=== PATIENT | female | born 1980 | race Caucasian/White ===

== ENCOUNTER 2018-02-23 13:45 | Outpatient (RCR) | payer OTHER, SELFPAY ==
--- NOTE | 2018-02-11 16:06 | PT.OTN ---
Current Diagnoses Other specified disorders of muscle (02/11/18) Transition note: On February 09, 2018 our therapy services consisting of Speech, Occupational, and Physical Therapy transitioned from the [employer] electronic documentation system to a new [employer] electronic documentation system.?? All documentation prior to February 09 can be found under [employer] saved data. From February 09 forward all medical record documentation will be in [employer] 6.1.
--- NOTE | 2018-02-11 17:35 | PT.OTN ---
Current Diagnoses Other specified disorders of muscle (02/11/18) Physical Therapy Treatment Note PT-OP-A Visit Information Start: 02/11/18 17:17 Freq: Status: Active Protocol: Activity Type Activity Date Activity User E-Sign Co-Sign Detail Recorded Client Recorded Date Recorded By Document 02/11/18 04:18 [facility] [email or web address] 02/11/18 17:34 [facility] 02/11/18 04:18 Out-Patient Physical Therapy Visit Information [Visit Information] -Visit Type Treatment Note -Visit Start Time 04:00 -Visit Stop Time 04:50 -Total Visit Minutes 50 -Visit Number 8 -Number of ELECTRICAL DESIGN TECHNICIAN Visits 0 PT-OP-C Subjective Start: 02/11/18 17:17 Freq: Status: Active Protocol: Activity Type Activity Date Activity User E-Sign Co-Sign Detail Recorded Client Recorded Date Recorded By Document 02/11/18 04:18 [facility] [email or web address] 02/11/18 17:34 [facility] 02/11/18 04:18 OP-PT Subjective [Patient Comments] -Patient Comments Christi notes she like the electrical stimulation last visit. She notes she is getting mirganes daily now and is in constant pain. She is unable to lay on her stomach and her low back continues to be painful. SHe is awaiting record review before being scheduled for surgery. -Patient Reported Progress Same PT-OP-Q Treatments Start: 02/11/18 17:17 Freq: Status: Active Protocol: Activity Type Activity Date Activity User E-Sign Co-Sign Detail Recorded Client Recorded Date Recorded By Document 02/11/18 04:18 [facility] [email or web address] 02/11/18 17:34 [facility] 02/11/18 04:18 Cardio Equipment [Bicycle (Upright)] -Duration (Minutes) 8 -Resistance 4 Therapeutic Exercises [Supine Exercises] 4 -Supine Exercise Name hamstring stretch -Side bilateral -Reps/Minutes 2 min 3 -Supine Exercise Name hip flexor stretch -Side bilateral -Reps/Minutes 2 minutes each -Comments in sharmaine test position with non stretched leg over the ball 2 -Supine Exercise Name ball rolls with 65 cm ball, side bends with knees over the ball -Side bilateral -Reps/Minutes 20 reps rolls and 10 reps sidebends -Comments for increased lumbar flexion 1 -Supine Exercise Name bilateral adductor squeeze -Reps/Minutes 10 [Other Exercises] 2 -Other Exercise Name quadraped pelvic tilts 1 -Other Exercise Name quadraped TA engagement with opposite arm lift -Side bilateral -Reps/Minutes 20 Manual Therapy Treatment [Joint Mobilizations] 1 -Joint thoracic spine mobilizations into extension -Grade III -Body Position Prone -Reps/Duration 12 minutes PT-OP-R Modalities Start: 02/11/18 17:17 Freq: Status: Active Protocol: Activity Type Activity Date Activity User E-Sign Co-Sign Detail Recorded Client Recorded Date Recorded By Document 02/11/18 04:18 [facility] [email or web address] 02/11/18 17:34 [facility] 02/11/18 04:18 Other Unlisted Modality [Treatment] Back -Name of Modality HOME TENS SET UP -Duration (Minutes) 5 -Body Position Sitting -Comments Christi was set up with a home TENS unit as her referral came through from her physician. She responded well to the electrical stimulation last visit for pain control. She understood set up of the TENS unit well. PT-OP-T Assessment and Plan Start: 02/11/18 17:17 Freq: Status: Active Protocol: Activity Type Activity Date Activity User E-Sign Co-Sign Detail Recorded Client Recorded Date Recorded By Document 02/11/18 04:18 [facility] [email or web address] 02/11/18 17:34 [facility] 02/11/18 04:18 Physical Therapy Plan [Frequency and Duration] -Frequency of Treatment 1x/Week [Therapeutic Interventions] -Therapeutic Interventions Home Exercise Program Manual Therapy Neuromuscular Re-education Self-Care/Home Management Soft Tissue Mobilization Therapeutic Exercises -Modalities Electric Stimulation [Next Visit Focus/Plan] -Next Visit Plan continue working on stretching and stabilization for Christi while she is awaiting surgical consult
--- NOTE | 2018-02-23 17:32 | PT.OTN ---
Current Diagnoses Other specified disorders of muscle (02/23/18) Physical Therapy Treatment Note PT-OP-A Visit Information Start: 02/11/18 17:17 Freq: Status: Active Protocol: Document 02/23/18 17:25 [facility] (Rec: 02/23/18 17:32 [facility] [email or web address]) Out-Patient Physical Therapy Visit Information Visit Information Visit Type Treatment Note Visit Start Time 13:45 Visit Stop Time 14:30 Total Visit Minutes 45 Visit Number 9 Number of MANAGER ENVIRONMENTAL HEALTH Visits 0 PT-OP-C Subjective Start: 02/11/18 17:17 Freq: Status: Active Protocol: Document 02/23/18 17:25 [facility] (Rec: 02/23/18 17:32 [facility] [email or web address]) OP-PT Subjective Patient Comments Patient Comments Christi reports she is waiting to hear back on a specialist at to perform her abdominal surgery. She did experience some bleeding following the abdomianl exercises she did in PT last treatment PT-OP-Q Treatments Start: 02/11/18 17:17 Freq: Status: Active Protocol: Document 02/23/18 17:25 [facility] (Rec: 02/23/18 17:32 [facility] [email or web address]) Cardio Equipment Elliptical Duration (Minutes) 8 Resistance 0 Gym Equipment Shuttle Rebound 1 Exercise Details bilateral leg press Reps/Duration 3 sets of 10 Comments both bilateral and single leg press Therapeutic Exercises Supine Exercises 5 Supine Exercise Name TA with marches Reps/Minutes 10 reps each 4 Supine Exercise Name hamstring stretch Side bilateral Reps/Minutes 2 min 3 Supine Exercise Name hip flexor stretch Side bilateral Reps/Minutes 2 min eacg Comments in sharmaine test position with non stretched leg over the ball 2 Supine Exercise Name ball rolls with 65 cm ball, side bends with knees over the ball Reps/Minutes 20 reps rolls and 10 reps sidebends Comments for increased lumbar flexion 1 Supine Exercise Name bilateral adductor squeeze Reps/Minutes 10 Other Exercises 2 Other Exercise Name quadraped pelvic tilts Reps/Minutes 10 1 Other Exercise Name quadraped TA engagement with opposite arm lift and opp leg lifts Side bilateral Reps/Minutes 20 PT-OP-R Modalities Start: 02/11/18 17:17 Freq: Status: Active Protocol: Document 02/11/18 04:18 [facility] (Rec: 02/11/18 17:34 [facility] [email or web address]) Other Unlisted Modality Treatment Back Name of Modality HOME TENS SET UP Duration (Minutes) 5 Body Position Sitting Comments Christi was set up with a home TENS unit as her referral came through from her physician. She responded well to the electrical stimulation last visit for pain control. She understood set up of the TENS unit well. PT-OP-T Assessment and Plan Start: 02/11/18 17:17 Freq: Status: Active Protocol: Document 02/23/18 17:25 [facility] (Rec: 02/23/18 17:32 [facility] [email or web address]) Physical Therapy Assessment Assessment Summary Assessment improving tolerance for ther ex but still complains of burining pain across the abdomen with abdominal exercises Physical Therapy Plan Frequency and Duration Frequency of Treatment 1x/Week Therapeutic Interventions Therapeutic Interventions Home Exercise Program Manual Therapy Neuromuscular Re-education Self-Care/Home Management Soft Tissue Mobilization Therapeutic Exercises Next Visit Focus/Plan Next Visit Plan continue working on stretching and stabilization for Christi while she is awaiting surgical consult
--- NOTE | 2018-05-05 11:45 | PT.OPDS ---
Current Diagnoses Other specified disorders of muscle (02/23/18) Provider Visit Care Team Role Provider Type Daysi Campuzano MD Attending Provider Physician Family Provider Primary Care Provider Specialty: Family Practice Address: [address] [place] [address], [facility] Email: [email or web address] Visit Number Visit Number 9 Discharge Summary PT-OP-C Subjective Start: 02/11/18 17:17 Freq: Status: Active Protocol: Document 02/23/18 17:25 [facility] (Rec: 02/23/18 17:32 [facility] [email or web address]) OP-PT Subjective Patient Comments Patient Comments Christi reports she is waiting to hear back on a specialist at to perform her abdominal surgery. She did experience some bleeding following the abdomianl exercises she did in PT last treatment PT-OP-T Assessment and Plan Start: 02/11/18 17:17 Freq: Status: Active Protocol: Document 05/05/18 11:44 [facility] (Rec: 05/05/18 11:45 [facility] [email or web address]) Physical Therapy Assessment Assessment Summary Assessment Per phone conversation Christi will be undergoing abdominal surgery due to pain levels s/p her last . She will follow up with PT after her surgery. Physical Therapy Plan Discharge Physical Therapy Discharge Reasons Patient Request Discharge Comments Christi is holding off on PT at this time as she will be undergoing surgery
== END 2018-05-17 14:37 ==
LOC: PHYS 13:45
PROVIDERS: Family Provider Family Medicine; PCP Family Medicine; Visit Provider Family Medicine
DX: M62.89 Other specified disorders of muscle (principal)
CPT/HCPCS: 97110; 97140

== ENCOUNTER → 2018-05-25 11:58 | Outpatient (CLI) | payer OTHER, SELFPAY ==
[2018-05-25 13:36] LABS: Free T4, Direct Thyroxine 1.17 ng/dL (0.78-2.19)
[2018-05-25 13:49] LABS: Thyroid Stimulating Hormone 4.66 uIU/mL (0.47-4.68)
[2018-05-27 15:33] LABS: Triiodothyronine T3 Total 114 ng/dL (76-181)
== END ==
PROVIDERS: Family Provider Family Medicine; PCP Family Medicine; Visit Provider Internal Medicine
DX: E89.0 Postprocedural hypothyroidism (principal)
CPT/HCPCS: 36415; 84439; 84443; 84480

== ENCOUNTER → 2018-06-21 12:26 | Outpatient (CLI) | payer OTHER, SELFPAY ==
[2018-06-21 14:32] LABS: Free T4, Direct Thyroxine 1.69 ng/dL (0.78-2.19)
[2018-06-23 15:02] LABS: Triiodothyronine T3 Total 116 ng/dL (76-181)
== END ==
PROVIDERS: PCP Family Medicine; Visit Provider Internal Medicine
DX: C73 Malignant neoplasm of thyroid gland (principal)
CPT/HCPCS: 36415; 84439; 84480

== ENCOUNTER → 2018-07-22 10:25 | Outpatient (CLI) | payer OTHER, SELFPAY ==
[2018-07-22 11:27] LABS: Erythrocyte Sedimentation Rate 28 MM/HR (0-20)
== END ==
PROVIDERS: PCP Family Medicine; Visit Provider Family Medicine
DX: E28.2 Polycystic ovarian syndrome (principal)
CPT/HCPCS: 36415; 85651

== ENCOUNTER → 2018-08-20 11:53 | Outpatient (CLI) | payer OTHER, SELFPAY ==
[2018-08-20 12:57] LABS: Free T4, Direct Thyroxine 1.71 ng/dL (0.78-2.19)
[2018-08-20 13:11] LABS: Thyroid Stimulating Hormone < 0.02 uIU/mL (0.47-4.68)
[2018-08-24 15:37] LABS: Triiodothyronine T3 Total 125 ng/dL (76-181)
== END ==
PROVIDERS: PCP Family Medicine; Visit Provider Internal Medicine
DX: C73 Malignant neoplasm of thyroid gland (principal); E89.0 Postprocedural hypothyroidism
CPT/HCPCS: 36415; 84439; 84443; 84480

== ENCOUNTER → 2018-09-29 13:28 | Outpatient (CLI) | payer OTHER, SELFPAY ==
[2018-09-29 14:55] LABS: Free T4, Direct Thyroxine 1.55 ng/dL (0.78-2.19)
[2018-09-29 15:09] LABS: Thyroid Stimulating Hormone 0.03 uIU/mL (0.47-4.68)
[2018-10-01 15:43] LABS: Triiodothyronine T3 Total 86 ng/dL (76-181)
== END ==
PROVIDERS: Family Provider Family Medicine; PCP Family Medicine; Visit Provider Internal Medicine
DX: C73 Malignant neoplasm of thyroid gland (principal); E89.0 Postprocedural hypothyroidism
CPT/HCPCS: 36415; 84439; 84443; 84480

== ENCOUNTER → 2019-01-12 11:27 | Outpatient (CLI) | payer OTHER, SELFPAY ==
[2019-01-12 12:50] LABS: Free T3, Triiodothyronine Free 4.41 pg/mL (2.77-5.27); Free T4, Direct Thyroxine 1.45 ng/dL (0.78-2.19)
[2019-01-12 13:04] LABS: Thyroid Stimulating Hormone < 0.02 uIU/mL (0.47-4.68)
== END ==
PROVIDERS: Family Provider Family Medicine; PCP Family Medicine; Visit Provider Internal Medicine
DX: E89.0 Postprocedural hypothyroidism (principal); C73 Malignant neoplasm of thyroid gland
CPT/HCPCS: 36415; 84439; 84443; 84481

== ENCOUNTER → 2019-02-17 19:33 | Outpatient (CLI) | payer OTHER, SELFPAY ==
--- NOTE | 2019-02-17 19:34 | DI.MRI.S_ITS ---
PROCEDURE: MR ANKLE RT WO CON INDICATIONS: UNSPECIFIED INJURY OF RIGHT FOOT,INITIAL ENCOUNTER. TECHNIQUE: Noncontrast sagittal T1 spin echo and T2 fast spin echo with fat saturation, axial proton density fast spin echo and T2 fast spin echo with fat saturation, coronal T1 spin echo and T2 fast spin echo with fat saturation through the ankle/hindfoot. COMPARISON: None. FINDINGS: Image quality: Excellent. Bones and joints: No bone marrow contusions or fractures. There is mild marrow edema involving the plantar calcaneus which is presumably reactive to plantar fasciitis as described below. Low T1/T2 signal subchondral focus sub-5 mm in size affecting the lateral talar dome, image 18 series 8 of doubtful clinical significance. No hindfoot coalitions. No osteochondral injuries of the talar dome. A Medial structures: The posterior tibialis, flexor digitorum longus, and flexor hallucis longus tendons are intact. There is mild fluid adjacent to the posterior tibialis and flexor digitorum longus tendons The posterior tibial neurovascular bundle appears normal within the tarsal tunnel, without extrinsic mass effect. The deep layer (anterior and posterior tibiotalar ligaments) and superficial layer (tibionavicular, tibiospring, and tibiocalcaneal ligaments) of the deltoid ligament appear normal. The spring ligament components (superomedial calcaneonavicular, medioplantar oblique calcaneonavicular, and inferoplantar longitudinal ligaments) are intact. Lateral structures: The anterior talofibular, calcaneofibular, and posterior talofibular ligaments appear intact. More superiorly, the anterior and posterior tibiofibular ligaments appear intact, as is the intermalleolar ligament. The tibiofibular syndesmosis is normal in width at 2 mm or less. The peroneus longus and brevis tendons demonstrate normal location and morphology. There is minimal adjacent fluid raising possibility of subtle peroneal tenosynovitis. Adjacent bony peroneal tubercle and retrotrochlear prominence are normal in size. The sinus tarsi demonstrates normal fatty signal, without edema, fibrosis, or cyst formation. Visualized sinus tarsi components (cervical ligament, interosseous talocalcaneal ligament, roots of the inferior extensor retinaculum) appear normal. The calcaneonavicular and calcaneocuboid components of the bifurcate ligament appear intact. The dorsal calcaneocuboid ligament appears intact. Anterior structures: The tibialis anterior, extensor hallucis longus, and extensor digitorum longus tendons appear intact. The dorsal talonavicular ligament appears intact. Posterior and plantar structures: Achilles tendon is intact. There is marked thickening of the medial band of the plantar fascia at the calcaneal attachment. Internal signal changes and adjacent soft tissue edema as well as reactive marrow signal changes. There is also mild atrophy of the abductor digit minimi raising possibility of Sunshine's neuropathy. IMPRESSION: Severe medial band plantar fasciitis with presumed reactive marrow edema in the calcaneus. Low-grade peroneal, posterior tibialis and flexor digitorum longus tenosynovitis. 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 Dictated by: Andrade Allen M.D. on 02/18/2019 at 9:40 Approved by: Andrade Allen M.D. on 02/18/2019 at 9:50
== END ==
PROVIDERS: Family Provider Family Medicine; PCP Family Medicine; Visit Provider Podiatrist
DX: S99.921A Unspecified injury of right foot, initial encounter (principal); M72.2 Plantar fascial fibromatosis; M65.871 Other synovitis and tenosynovitis, right ankle and foot
CPT/HCPCS: 73721

== ENCOUNTER → 2019-02-24 08:38 | Outpatient (CLI) | payer OTHER, MEDICAID, SELFPAY ==
[2019-02-24 11:02] LABS: Free T3, Triiodothyronine Free 3.65 pg/mL (2.77-5.27); Free T4, Direct Thyroxine 1.27 ng/dL (0.78-2.19)
[2019-02-28 17:13] LABS: Thyroid Stimulating Hormone 0.42 uIU/mL (0.47-4.68)
== END ==
PROVIDERS: Family Provider Family Medicine; PCP Family Medicine; Visit Provider Internal Medicine
DX: E89.0 Postprocedural hypothyroidism (principal)
CPT/HCPCS: 36415; 84439; 84443; 84481

== ENCOUNTER → 2019-04-28 09:58 | Outpatient (CLI) | payer OTHER, MEDICAID, SELFPAY ==
[2019-04-28 11:59] LABS: Free T4, Direct Thyroxine 1.58 ng/dL (0.78-2.19)
[2019-04-28 12:14] LABS: Thyroid Stimulating Hormone 0.21 uIU/mL (0.47-4.68)
[2019-04-30 15:22] LABS: Triiodothyronine T3 Total 169 ng/dL (76-181)
== END ==
PROVIDERS: Internal Medicine; Family Provider Family Medicine; PCP Family Medicine; Visit Provider Family Medicine
DX: C73 Malignant neoplasm of thyroid gland (principal); E89.0 Postprocedural hypothyroidism
CPT/HCPCS: 36415; 84439; 84443; 84480; 86800

== ENCOUNTER → 2019-07-16 07:58 | Outpatient (CLI) | payer OTHER, MEDICAID, SELFPAY ==
[2019-07-16 10:42] LABS: Cortisol AM (Before 10AM) 9.59 ug/dL (4.46-22.7)
[2019-07-19 13:55] LABS: Z- Score (Female) -1.4 SD (-2.0 - +2.0)
== END ==
PROVIDERS: Family Provider Family Medicine; PCP Family Medicine; Visit Provider Internal Medicine
DX: R53.83 Other fatigue (principal); S09.90XA Unspecified injury of head, initial encounter
CPT/HCPCS: 36415; 82533; 84305; 86800

== ENCOUNTER → 2019-07-25 13:08 | Outpatient (CLI) | payer OTHER, MEDICAID, SELFPAY ==
[2019-07-25 14:12] LABS: Blood Urea Nitrogen 13 mg/dL (7-17); Calcium 10.2 mg/dL (8.4-10.2); Carbon Dioxide 24 mmol/L (22-32); Chloride 104 mmol/L (98-107); Estimated Glomerular Filt Rate > 60.0 mL/min (>60); Glucose 151 mg/dL (70-100); HEMOLYSIS < 15 (0-50); Potassium 4.1 mmol/L (3.4-5.1); Sodium 141 mmol/L (137-145)
== END ==
PROVIDERS: PCP Family Medicine; Visit Provider Family Medicine
DX: Z01.812 Encounter for preprocedural laboratory examination (principal)
CPT/HCPCS: 36415; 80048

== ENCOUNTER → 2019-07-25 13:17 | Outpatient (CLI) | payer OTHER, MEDICAID, SELFPAY ==
--- NOTE | 2019-07-25 14:12 | DI.CT.S_ITS ---
PROCEDURE: CT ANGIO CHEST INDICATIONS: ascending aorta dilation TECHNIQUE: After the administration of intravenous contrast, 2 mm thick sections acquired from the pulmonary apices to the posterior costophrenic angles. 3-dimensional maximum intensity projection (MIP) coronal and sagittal reformats were then acquired through the thorax. For radiation dose reduction, the following was used: automated exposure control, adjustment of mA and/or kV according to patient size. COMPARISON: Same day CT abdomen and pelvis. FINDINGS: Image quality: Excellent. Mild motion. Vascular: No acute aortic syndrome. No central pulmonary embolism. Ascending thoracic aorta measures 3 cm. Mild calcified atherosclerotic plaque of the aortic arch. Pulmonary arteries are normal caliber. The descending thoracic aorta measures 2 cm. Lungs and pleura: Lungs are clear. No pleural effusions or pneumothorax. Central and peripheral airways are patent. Minimal thickening of the right minor fissure. Mediastinum: Heart size is normal, without pericardial effusion. No mediastinal or hilar adenopathy. Thoracic aorta is normal in caliber and enhancement. Esophagus is normal in caliber. Small hiatal hernia. Bones and chest wall: No suspicious bony lesions. Ribs and thoracic spine appear intact throughout. Thyroid gland is unremarkable. No axillary or supraclavicular adenopathy. Abdomen: Please see separate dictated CT abdomen and pelvis performed today. IMPRESSION: 1. Ascending thoracic aorta measures 3 cm and is within normal limits. Mild aortic arch atherosclerotic calcification. 2. No acute airspace opacity. Dictated by: Ankur Zamarripa M.D. on 07/25/2019 at 15:09 Approved by: Ankur Zamarripa M.D. on 07/25/2019 at 15:20
--- NOTE | 2019-07-25 14:12 | DI.CT.S_ITS ---
PROCEDURE: CT ABDOMEN PELVIS W CON INDICATIONS: generalized abdominal pain Additional history: Mid abdominal pain for 2 years duration. TECHNIQUE: After the administration of oral and intravenous contrast, 5 mm thick sections acquired from the diaphragms to the symphysis. 5 mm thick coronal and sagittal reformats were performed. For radiation dose reduction, the following was used: automated exposure control, adjustment of mA and/or kV according to patient size. Patient received premedication for prior IV contrast allergy. COMPARISON: Same day CT chest angiogram. Pelvic ultrasound 01/15/2018, 05/22/2017.. FINDINGS: Image quality: Excellent. ABDOMEN: Lung bases: Clear. Please see separately dictated same day CT chest angiogram. Solid organs: Liver is normal in size. Diffuse low-attenuation consistent with hepatic steatosis. Focal area of calcific density near the confluence of the hepatic veins, (07/30). Hepatic veins are patent. Portal vein is patent. Patent and conventional branching of the hepatic artery. Gallbladder is not significantly distended. Heterogeneous intraluminal contents with punctate calcifications likely multiple gallstones. Biliary system is non-dilated. Pancreas enhances normally. Spleen is elongated in the craniocaudal dimension measuring 3.9 cm, (11/45). No focal lesion. No adrenal nodules. Kidneys are normal in size and enhancement, without hydronephrosis. Peritoneum and bowel: Small hiatal hernia. Stomach, small bowel, and colon loops are normal in caliber and wall thickness. No free fluid or air. Nodes and vessels: No retroperitoneal or mesenteric adenopathy. Aorta and inferior vena cava are normal in caliber. Miscellaneous: No ventral hernias. Lower abdominal wall scar. PELVIS: Genitourinary: Bladder is mostly decompressed. The uterus is retroverted. Miscellaneous: No inguinal hernias or adenopathy. Bones: No suspicious bony lesions. No vertebral body compression fractures. IMPRESSION: 1. Hepatic steatosis. Focal area of calcification near the confluence of the hepatic veins of uncertain clinical significance. Hepatic veins are patent. 2. Cholelithiasis. 3. Hepatic steatosis. Mild splenomegaly. 4. Small hiatal hernia. Dictated by: Ankur Zamarripa M.D. on 07/25/2019 at 15:20 Approved by: Ankur Zamarripa M.D. on 07/25/2019 at 15:31
== END ==
PROVIDERS: PCP Family Medicine; Visit Provider Family Medicine
DX: Z01.812 Encounter for preprocedural laboratory examination (principal); R10.84 Generalized abdominal pain; I77.810 Thoracic aortic ectasia; I70.0 Atherosclerosis of aorta; K44.9 Diaphragmatic hernia without obstruction or gangrene; K76.0 Fatty (change of) liver, not elsewhere classified; K80.20 Calculus of gallbladder without cholecystitis without obstruction; R16.1 Splenomegaly, not elsewhere classified
CPT/HCPCS: 36415; 71275; 74177; 80048; Q9967

== ENCOUNTER → 2019-07-30 08:06 | Outpatient (CLI) | payer OTHER, MEDICAID, SELFPAY ==
[2019-07-30 10:28] LABS: Cortisol AM (Before 10AM) 7.56 ug/dL (4.46-22.7)
== END ==
PROVIDERS: PCP Family Medicine; Visit Provider Internal Medicine
DX: C73 Malignant neoplasm of thyroid gland (principal); R53.83 Other fatigue; E89.0 Postprocedural hypothyroidism
CPT/HCPCS: 36415; 82533

== ENCOUNTER → 2019-09-03 10:20 | Outpatient (CLI) | payer OTHER, MEDICAID, SELFPAY ==
--- NOTE | 2019-09-03 | DI.MG.S_ITS ---
BILATERAL DIGITAL SCREENING MAMMOGRAM 3D/2D WITH CAD: 09/03/2019 CLINICAL: Routine screening. Baseline exam. Family history of breast cancer. No prior exams were available for comparison. There are scattered fibroglandular elements in both breasts. Current study was also evaluated with a Computer Aided Detection (CAD) system. No significant masses, calcifications, or other findings are seen in either breast. IMPRESSION: NEGATIVE There is no mammographic evidence of malignancy. A 1 year screening mammogram is recommended. This exam was interpreted at Station ID: [id number]. NOTE: For mammograms, a report in lay terms will be sent to the patient. Approximately 15% of breast malignancies will not be visualized mammographically. In the management of a palpable breast mass, a negative mammogram must not discourage biopsy of a clinically suspicious lesion. Electronically Signed By: Dimas day/lenore:09/05/2019 07:42:40 letter sent: Normal Exam ACR BI-RADS Category 1: Negative [id number]
== END ==
PROVIDERS: PCP Family Medicine; Visit Provider Family Medicine
DX: Z12.31 Encounter for screening mammogram for malignant neoplasm of breast (principal); Z80.3 Family history of malignant neoplasm of breast
CPT/HCPCS: 77063; 77067

== ENCOUNTER → 2019-12-01 16:23 | Outpatient (CLI) | payer OTHER, MEDICAID, SELFPAY ==
[2019-12-05 10:34] LABS: Z- Score (Female) -0.5 SD (-2.0 - +2.0)
== END ==
PROVIDERS: PCP Family Medicine; Referring Provider Internal Medicine; Visit Provider Internal Medicine
DX: R53.83 Other fatigue (principal); S09.90XA Unspecified injury of head, initial encounter
CPT/HCPCS: 36415; 84305; 86800

== ENCOUNTER → 2020-08-16 12:00 | Outpatient (CLI) | payer OTHER, MEDICAID, SELFPAY ==
[2020-08-16 13:17] LABS: Add Manual Diff / Slide Review NO; Basophils Absolute Auto 0 /uL (0-100); Basophils Percent Auto 0.4 % (0-2); Eosinophils Absolute Auto 400 /uL (0-450); Eosinophils Percent Auto 4.3 % (2-4); Hematocrit 40.4 % (36-46); Hemoglobin 13.6 g/dL (12.0-16.0); Lymphocytes Absolute Auto 2300 /uL (1100-4500); Mean Corpuscular HGB Conc 33.5 % (30-36); Mean Corpuscular Hemoglobin 29.8 PG (26-34); Mean Corpuscular Volume 88.8 fL (80-100); Monocytes Absolute Auto 500 /uL (0-900); Monocytes Percent Auto 6.1 % (3-14); Neutrophils Absolute Auto 5500 /uL (1500-7000); Neutrophils Percent Auto 63.2 % (50-75); Platelet Count 266 X10^3/uL (150-400); Red Blood Cell Count 4.55 X10^6/uL (4.0-5.2); Red Cell Distribution Width 12.4 % (11.6-14.8); White Blood Cell Count 8.8 X10^3/uL (4.5-11.0)
[2020-08-16 13:40] LABS: Hemoglobin A1C% w Est Avg Glu 6.3 % (4.0-6.0)
[2020-08-16 13:42] LABS: Alanine Aminotransferase 33 IU/L (<35); Albumin 4.2 g/dL (3.5-5.0); Albumin Globulin Ratio 1.3 (1.0-2.8); Alkaline Phosphatase 152 U/L (38-126); Aspartate Aminotransferase 27 IU/L (14-36); BUN Creatinine Ratio 28.8 (6-22); Bilirubin Total 0.3 mg/dL (0.2-1.3); Blood Urea Nitrogen 15 mg/dL (7-17); Calcium 9.3 mg/dL (8.4-10.2); Carbon Dioxide 29 mmol/L (22-32); Chloride 102 mmol/L (98-107); Estimated Glomerular Filt Rate > 60.0 mL/min (>60); Gamma Glutamyl Transpeptidase 117 U/L (12-43); Globulin 3.3 g/dL (1.7-4.1); Glucose 165 mg/dL (70-100); HEMOLYSIS < 15 (0-50); Potassium 3.8 mmol/L (3.4-5.1); Sodium 137 mmol/L (137-145); Total Protein 7.5 g/dL (6.3-8.2)
[2020-08-16 16:47] LABS: Vitamin D 25 Hydroxy (D3) 32.3 ng/mL (30.0-100.0)
[2020-08-16 16:59] LABS: Follicle Stimulating Hormone 2.26 mIU/mL; Luteinizing Hormone 2.95 mIU/mL
[2020-08-16 17:14] LABS: Estradiol, Total 157.5 pg/mL
[2020-08-16 17:19] LABS: Hep C Virus Ab w/Reflex Quant NEGATIVE s/c (NEGATIVE)
[2020-08-17 13:12] LABS: Calcium 9.3 mg/dL (8.7-10.2); Parathyroid Hormone, Intact 28 pg/mL (15-65)
== END ==
PROVIDERS: PCP Family Medicine; Referring Provider Family Medicine; Visit Provider Family Medicine
DX: R74.8 Abnormal levels of other serum enzymes (principal); Z92.89 Personal history of other medical treatment; Z90.09 Acquired absence of other part of head and neck; R53.83 Other fatigue; R73.9 Hyperglycemia, unspecified; R23.2 Flushing; E55.9 Vitamin D deficiency, unspecified
CPT/HCPCS: 36415; 80053; 82306; 82310; 82670; 82977; 83001; 83002; 83036; 83970; 85025; 86803

== ENCOUNTER 2020-11-08 18:34 | Emergency (ER) | payer OTHER, MEDICAID, SELFPAY ==
[2020-11-08 18:40] VITALS: BP 167/95; PULSE 88; RESP 15; TEMP 36.8; O2SAT 98; BMI 40.6
--- NOTE | 2020-11-08 18:50 | DI.RAD.S_ITS ---
PROCEDURE: XR CHEST 1V INDICATIONS: cough, SOB, sore throat TECHNIQUE: One view of the chest was acquired. COMPARISON: [facility], CT, CT ANGIO CHEST, 07/25/2019, 13:47. FINDINGS: Surgical changes and devices: None. Lungs and pleura: Lungs are clear. No pleural effusions or pneumothorax. Mediastinum: Mediastinal contours appear normal. Heart size appears enlarged. Bones and chest wall: No suspicious bony lesions. Overlying soft tissues appear unremarkable. IMPRESSION: No acute cardiopulmonary abnormality. Heart size appears enlarged. Dictated by: Ankur Zamarripa M.D. on 11/08/2020 at 19:36 Approved by: Ankur Zamarripa M.D. on 11/08/2020 at 19:37
[2020-11-08 19:09] LABS: COVID19 -Nasal RAPID Negative (Negative)
[2020-11-08 20:14] VITALS: BP 158/87; PULSE 81; RESP 14; O2SAT 81
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
== END 2020-11-08 20:16 | disposition home or self-care (01) ==
PROVIDERS: Emergency Provider Emergency Medicine; PCP Family Medicine
DX: J06.9 Acute upper respiratory infection, unspecified (principal); R05 Cough; R51.9 Headache, unspecified; J02.9 Acute pharyngitis, unspecified; R09.81 Nasal congestion; R50.9 Fever, unspecified; Z20.822 Contact with and (suspected) exposure to COVID-19
CPT/HCPCS: 71045; 87635; 99281; 99283; C9803

== ENCOUNTER → 2020-11-11 17:02 | Outpatient (CLI) | payer OTHER, MEDICAID, SELFPAY ==
--- NOTE | 2020-11-11 17:04 | DI.RAD.S_ITS ---
PROCEDURE: XR HAND LT MIN 3V INDICATIONS: bilateral hand pain TECHNIQUE: 3 views of the hand(s) acquired. COMPARISON: [facility], CR, XR LUMBAR SPINE MIN 4V, 11/11/2020, 17:12. [facility], CR, XR CERVICAL SPINE 2V OR 3V, 11/11/2020, 17:12. [facility], CR, XR HAND RT MIN 3V, 11/11/2020, 17:12. [facility], CR, XR THORACIC SPINE 3V, 11/11/2020, 17:12. FINDINGS: Bones: No fractures or dislocations. Carpal bones are normally aligned. No suspicious bony lesions. Soft tissues: No suspicious soft tissue calcifications. IMPRESSION: No significant hand plain film abnormality can be seen. Dictated by: Miah Peterson M.D. on 11/11/2020 at 16:45 Approved by: Miah Peterson M.D. on 11/11/2020 at 16:46
--- NOTE | 2020-11-11 17:04 | DI.RAD.S_ITS ---
PROCEDURE: XR HAND RT MIN 3V INDICATIONS: bilateral hand pain TECHNIQUE: 3 views of the hand(s) acquired. COMPARISON: [facility], CR, XR LUMBAR SPINE MIN 4V, 11/11/2020, 17:12. [facility], CR, XR CERVICAL SPINE 2V OR 3V, 11/11/2020, 17:12. [facility], CR, XR THORACIC SPINE 3V, 11/11/2020, 17:12. [facility], CR, XR HAND LT MIN 3V, 11/11/2020, 17:12. FINDINGS: Bones: No fractures or dislocations. Carpal bones are normally aligned. No suspicious bony lesions. Soft tissues: No suspicious soft tissue calcifications. IMPRESSION: No significant abnormality can be seen on this plain film study. Dictated by: Miah Peterson M.D. on 11/11/2020 at 16:46 Approved by: Miah Peterson M.D. on 11/11/2020 at 16:47
--- NOTE | 2020-11-11 17:04 | DI.RAD.S_ITS ---
PROCEDURE: XR LUMBAR SPINE MIN 4V INDICATIONS: back pain TECHNIQUE: 5 views of the lumbar spine were acquired, including bilateral oblique views. COMPARISON: [facility], CT, CT ABDOMEN PELVIS W CON, 07/25/2019, 13:47. [facility], CR, XR HAND RT MIN 3V, 11/11/2020, 17:12. [facility], CR, XR CERVICAL SPINE 2V OR 3V, 11/11/2020, 17:12. [facility], CR, XR THORACIC SPINE 3V, 11/11/2020, 17:12. [facility], CR, XR HAND LT MIN 3V, 11/11/2020, 17:12. FINDINGS: Bones: 5 nonrib-bearing vertebrae are present. There is normal bony alignment. No vertebral body compression fractures. No suspicious bony lesions. Mild disc space narrowing can be seen at the L5-S1 level. The disc heights otherwise appear well-preserved. Lower lumbar spine facet arthropathy is seen. Soft tissues: Overlying bowel gas pattern is normal. No suspicious soft tissue calcifications. Oblique images: No pars defects. IMPRESSION: Focal L5-S1 degenerative change can be seen. No pars defects are detected. Dictated by: Miah Peterson M.D. on 11/11/2020 at 16:47 Approved by: Miah Peterson M.D. on 11/11/2020 at 16:48
--- NOTE | 2020-11-11 17:04 | DI.RAD.S_ITS ---
PROCEDURE: XR THORACIC SPINE 3V INDICATIONS: back pain TECHNIQUE: 3 views of the thoracic spine were acquired. COMPARISON: [facility], CT, CT ANGIO CHEST, 07/25/2019, 13:47. [facility], CR, XR HAND RT MIN 3V, 11/11/2020, 17:12. [facility], CR, XR LUMBAR SPINE MIN 4V, 11/11/2020, 17:12. [facility], CR, XR CERVICAL SPINE 2V OR 3V, 11/11/2020, 17:12. [facility], CR, XR HAND LT MIN 3V, 11/11/2020, 17:12. [facility], CR, XR CHEST 1V, 11/08/2020, 19:25. FINDINGS: Bones: No fractures or dislocations. No suspicious bony lesions. 12 pairs of ribs are noted, and appear intact where visualized. Accentuated thoracic kyphosis is seen. Mild degenerative changes are seen. Soft tissues: No paravertebral stripe thickening. IMPRESSION: Mild thoracic spine degenerative changes are seen, without a significant, focal abnormality identified. Dictated by: Miah Peterson M.D. on 11/11/2020 at 16:44 Approved by: Miah Peterson M.D. on 11/11/2020 at 16:45
--- NOTE | 2020-11-11 17:04 | DI.RAD.S_ITS ---
PROCEDURE: XR CERVICAL SPINE 2V OR 3V INDICATIONS: back pain TECHNIQUE: 3 view(s) of the cervical spine were acquired. COMPARISON: [facility], CR, XR HAND RT MIN 3V, 11/11/2020, 17:12. [facility], CR, XR LUMBAR SPINE MIN 4V, 11/11/2020, 17:12. [facility], CR, XR THORACIC SPINE 3V, 11/11/2020, 17:12. [facility], CR, XR HAND LT MIN 3V, 11/11/2020, 17:12. FINDINGS: Bones: No fractures or dislocations to the T1 level. The lateral masses of C1 appear intact on the odontoid view. No suspicious bony lesions. There is straightening of the normal cervical lordosis. Mild disc space narrowing is seen at the C5-C6 level, with associated mild endplate irregularity and sclerosis. The disc heights otherwise appear well-preserved. Soft tissues: No prevertebral soft tissue swelling. The visualized lung apices are unremarkable. IMPRESSION: Focal C5-C6 degenerative change. Straightening of the normal cervical lordosis is seen, which is commonly observed in patients with muscular spasm. Dictated by: Miah Peterson M.D. on 11/11/2020 at 16:49 Approved by: Miah Peterson M.D. on 11/11/2020 at 16:49
== END ==
PROVIDERS: PCP Family Medicine; Referring Provider Family Medicine; Visit Provider Family Medicine
DX: M54.9 Dorsalgia, unspecified (principal); M79.641 Pain in right hand; M79.642 Pain in left hand; M47.812 Spondylosis without myelopathy or radiculopathy, cervical region; M47.814 Spondylosis without myelopathy or radiculopathy, thoracic region; M47.817 Spondylosis without myelopathy or radiculopathy, lumbosacral region
CPT/HCPCS: 72040; 72072; 72110; 73130

== ENCOUNTER → 2020-11-12 16:00 | Outpatient (CLI) | payer OTHER, MEDICAID, SELFPAY ==
[2020-11-12 17:14] LABS: Hemoglobin A1C% w Est Avg Glu 6.6 % (4.0-6.0)
[2020-11-12 17:50] LABS: Rheumatoid Factor < 8.6 IU/mL (<12.0)
[2020-11-12 18:31] LABS: Erythrocyte Sedimentation Rate 33 MM/HR (0-20)
[2020-11-14 22:52] LABS: CCP Antibodies IgG/IgA 6 units (0-19)
== END ==
PROVIDERS: PCP Family Medicine; Referring Provider Family Medicine; Visit Provider Family Medicine
DX: R73.03 Prediabetes (principal); M79.641 Pain in right hand; M79.642 Pain in left hand; Z82.61 Family history of arthritis
CPT/HCPCS: 36415; 83036; 85651; 86140; 86200; 86430

== ENCOUNTER → 2020-11-14 09:56 | Outpatient (CLI) | payer OTHER, MEDICAID, SELFPAY ==
[2020-11-14 11:11] LABS: COVID19 -Nasal RAPID Negative (Negative)
== END ==
PROVIDERS: PCP Family Medicine; Visit Provider Nurse Practitioner Family
DX: R05 Cough (principal); R51.9 Headache, unspecified; R53.83 Other fatigue
CPT/HCPCS: 87635

== ENCOUNTER 2020-12-17 07:23 | Outpatient (RCR) | payer OTHER, MEDICAID, SELFPAY ==
--- NOTE | 2020-12-17 10:08 | OT.OP.EVAL ---
Visit Care Team Role Provider Type Daysi Campuzano MD Attending Provider Physician Primary Care Provider Referring Provider Specialty: Family Practice Address: [address] [place] [address], [facility], [place], [address] Email: [email or web address] Occupational Therapy Initial Evaluation OT Outpatient Adult Evaluation Start: 12/17/20 09:36 Freq: Status: Active Protocol: Document 12/17/20 09:37 AMS (Rec: 12/17/20 10:08 AMS [id number]) General Information Visit Start Time 07:30 Visit Stop Time 08:20 Total Visit Minutes 50 Plan of Care Dates 12/17/20-03/11/21 Insurance Information PT/OT combined for max 24 visits; [facility] Treatment Setting Outpatient Care Note Type Initial Evaluation Identification Confirmed Yes Goals Treatment Initiated home exercise program. Instructed on myofascial bilateral thumb adductor stretch; practiced in treatment session w/ hold of at least 20 seconds. Provided written and visual instructions on basic wrist stretches with focus on lengthening of wrist/digit flexors. Provided written and visual instructions on tendon glides w/ focus on hook fist given bilateral intrinsic tightness; verbally instructed in passive stretch for hook fist and alternative stretch for wrist/digit flexors w/ use of table. Verbally instructed in radial stretch of distal right UE. Initiated instruction of basic joint protection principles and avoiding positions of deformity. Recommend reviewing exercises. Assessment/Plan Treatment Assessment Christi is a right hand dominant female referred to outpatient OT by her PCP, Daysi Campuzano MD, secondary to joint pain of the hands which is making it challenging for her to get tasks done in the home. PMH: Significant for tape allergies; arthritis; back pain; blood clots; thyroid cancer; Diabetes I while w/ twins; falls ; headaches; TMJ pain; hernia; neck pain; ADHD; anxiety; PTSD; TBI; vision impairment - right; IBS; PCOS; TBS/C; Aortic regurgitation; multiple surgeries. Patient goals: Decrease pain of hands to support daily task completion Evaluation findings: Pain Assessment Grid completed; patient indicated 5-6 out of 10 on the pain scale relative to bilateral hand pain; pain reportedly makes it difficult to sleep as well. QuickDASH UE Outcome Measure score = 65.9. Christi reports running hands under hot water during the day for relief, as well as frequently massaging the fingers and stretching fingers individually. (+) tightness of bilateral thumb adductors; R > L. Tightness into flexor/ pronation pattern bilaterally, R > L. Tightness of radial side of wrist. (+) bilateral intrinsic tightness. 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 Christi denies use of splints; she does not have a home exercise program at this time relative to conservative pain management strategies, maintaining available range of motion of digits/hands, and prevention of abnormal positioning of digits/joints. Christi would likely benefit from outpatient OT to address pain/discomfort of distal UEs, establishment of appropriate HEP, and for education. It will be important to monitor number of visits given Christi' s insurance limitations and return to outpatient PT in the month of January. Home Exercise Program Refer to treatment section of note for specific details. Comment 12 weeks Comment 1 x every other week Therapeutic Contents Active Range of Motion, Adaptive Equipment Education, Client Education,Home Exercise Program,Joint Protection, Manual Therapy,Education,Self- Care,Therapeutic Activities, Therapeutic Exercises, Modalities Modalities As Needed,As Prescribed Additional Types of Modalities Paraffin, heat, US, ice
--- NOTE | 2021-01-25 10:24 | OT.OP.DC ---
Visit Care Team Role Provider Type Daysi Campuzano MD Attending Provider Physician Primary Care Provider Referring Provider Address: [address] [place] [address], [facility], [place], [address] Email: [email or web address] Outpatient OT Outpatient Adult Evaluation Start: 12/17/20 09:36 Freq: Status: Active Protocol: Document 12/17/20 09:37 [facility] (Rec: 12/17/20 10:08 AMS [id number]) General Information Session Time Visit Start Time 07:30 Visit Stop Time 08:20 Total Visit Minutes 50 Visit Information Plan of Care Dates 12/17/20-03/11/21 Insurance Information PT/OT combined for max 24 visits; [facility] Setting Treatment Setting Outpatient Care Visit Type Note Type Initial Evaluation Identification Identification Confirmed Yes Goals Treatment Treatment Initiated home exercise program. Instructed on myofascial bilateral thumb adductor stretch; practiced in treatment session w/ hold of at least 20 seconds. Provided written and visual instructions on basic wrist stretches with focus on lengthening of wrist/digit flexors. Provided written and visual instructions on tendon glides w/ focus on hook fist given bilateral intrinsic tightness; verbally instructed in passive stretch for hook fist and alternative stretch for wrist/digit flexors w/ use of table. Verbally instructed in radial stretch of distal right UE. Initiated instruction of basic joint protection principles and avoiding positions of deformity. Recommend reviewing exercises. Assessment/Plan Assessment Treatment Assessment Christi is a right hand dominant female referred to outpatient OT by her PCP, Daysi Campuzano MD, secondary to joint pain of the hands which is making it challenging for her to get tasks done in the home. PMH: Significant for tape allergies; arthritis; back pain; blood clots; thyroid cancer; Diabetes I while w/ twins; falls ; headaches; TMJ pain; hernia; neck pain; ADHD; anxiety; PTSD; TBI; vision impairment - right; IBS; PCOS; TBS/C; Aortic regurgitation; multiple surgeries. Patient goals: Decrease pain of hands to support daily task completion Evaluation findings: Pain Assessment Grid completed; patient indicated 5-6 out of 10 on the pain scale relative to bilateral hand pain; pain reportedly makes it difficult to sleep as well. QuickDASH UE Outcome Measure score = 65.9. Christi reports running hands under hot water during the day for relief, as well as frequently massaging the fingers and stretching fingers individually. (+) tightness of bilateral thumb adductors; R > L. Tightness into flexor/ pronation pattern bilaterally, R > L. Tightness of radial side of wrist. (+) bilateral intrinsic tightness. 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 Christi denies use of splints; she does not have a home exercise program at this time relative to conservative pain management strategies, maintaining available range of motion of digits/hands, and prevention of abnormal positioning of digits/joints. Christi would likely benefit from outpatient OT to address pain/discomfort of distal UEs, establishment of appropriate HEP, and for education. It will be important to monitor number of visits given Christi' s insurance limitations and return to outpatient PT in the month of January. Home Exercise Program Refer to treatment section of note for specific details. Plan Comment 12 weeks Comment 1 x every other week Therapeutic Contents Active Range of Motion, Adaptive Equipment Education, Client Education,Home Exercise Program,Joint Protection, Manual Therapy,Education,Self- Care,Therapeutic Activities, Therapeutic Exercises, Modalities Modalities As Needed,As Prescribed Additional Types of Modalities Paraffin, heat, US, ice Sensory Assessment Sensory Profile2 Functional Wrist/Hand Scan Hand Side OT Outpatient Treatment Note - Adult Start: 12/17/20 09:36 Freq: Status: Active Protocol: Document 01/25/21 10:22 [facility] (Rec: 01/25/21 10:24 AMS [id number]) OT Outpatient Adult Treatment Note Visit Information Plan of Care Dates 12/17/20-03/11/21 Setting Treatment Setting Outpatient Care Visit Type Note Type Discharge Summary General Information General Information Christi is a right hand dominant female referred to outpatient OT by her PCP, Daysi Campuzano MD, secondary to joint pain of the hands which is making it challenging for her to get tasks done in the home. PMH: Significant for tape allergies; arthritis; back pain; blood clots; thyroid cancer; Diabetes I while w/ twins; falls ; headaches; TMJ pain; hernia; neck pain; ADHD; anxiety; PTSD; TBI; vision impairment - right; IBS; PCOS; TBS/C; Aortic regurgitation; multiple surgeries. - Subjective Observations Per [facility] outpatient clinic assistant front office manager staff, patient requested d/c due to increase in COVID cases. Recommend re-evaluating as deemed appropriate by PCP. - - - Assessment Assessment of Improvement Per [facility] outpatient [facility] assistant front office manager staff, patient requested d/c due to increase in COVID cases. Recommend re-evaluating as deemed appropriate by PCP. - Plan Therapy Recommendations Discharge from Occupational Therapy
== END 2021-01-28 07:59 | disposition home or self-care (01) ==
LOC: OT 07:23
PROVIDERS: PCP Family Medicine; Referring Provider Family Medicine; Visit Provider Family Medicine
DX: M79.641 Pain in right hand (principal); M79.642 Pain in left hand
CPT/HCPCS: 97110; 97165

== ENCOUNTER 2021-01-10 09:15 | Outpatient (RCR) | payer OTHER, MEDICAID, SELFPAY ==
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
--- NOTE | 2021-01-26 13:46 | PT.OPDS ---
Current Diagnoses Unspecified dyspareunia (01/10/21) Visit Care Team Role Provider Type Daysi Campuzano MD Attending Provider Physician Primary Care Provider Referring Provider Specialty: Family Practice Address: [address] [place] [address], [facility], [place], [address] Email: [email or web address] Visit Number Visit Number 1 Discharge Summary PT-OP-B Current Condition Start: 01/10/21 09:03 Freq: Status: Active Protocol: Document 01/10/21 09:32 [facility] (Rec: 01/10/21 10:06 [facility] [id number]) Current Condition History of Current Condition Onset Date pain with intercourse started after she had the twins Current Complaints pain in neck and shoulders and back, pelvic pain with intercourse. History of Current Condition pt is a 40 year old female with Ongoing pelvic pain with intercourse. Pain is present with initial and deeper penetration. Weak core and low back pain. She reports her periods have stopped. Pt reports she has constipation and hemmroids and bowel movements are painful. She notes she hurts all the time and just wants to try and get the pelvic floor relaxed. The roller is extremely painful. Prior Treatments and Tests twin and tripplet pregnancies with her twins at 20 weeks her uterus flipped surgical history bone spur 2012 status post delivery 2014 status post delivery 2017 status post dilation and curettage 2010 and 2013 history of hip dysplasia as a child Future Testing and Treatments Planned pt considering abdominoplasty and scar tissue removal. She is hoping she doesn't need a hysterectomy. She is planning for surgery in the fall of 2020 but she would like to lose weight first. Treatment Goals Patient/Caregiver Goals pt would like to work on her pelvic floor muscles as she is so tight and in pain. Would like to get her body loose. Current Functional Impairments (Reported) Functional Limitations- ADL's Hx of right sided ankle injury which limited walking, this is slowly improving. Functional Limitations- Other pt reports she is verly limited with exercise as she has pain with activity. She is unable to lay on her stomache due to pain, she is limited with playing with her kids on the floor due to pain. PT-OP-C Subjective Start: 01/10/21 09:03 Freq: Status: Active Protocol: Document 01/10/21 09:45 [facility] (Rec: 01/10/21 11:58 [facility] [id number]) Patient Questionnaires Pelvic Pain and Urgency/Frequency Patient Symptom Scale Pelvic Pain Score 24 OP-PT Pain Assessment Pain Assessment Grid Paper Pain Assessment Grid Completed Yes Location widespread pain Pain Location Details pain is widespread, neck low back, pelvic floor, abdominal reagion Intensity 8 Scale Used Numeric (0 - 10) Description Aching,Chronic,Pulling, Radiating,Stabbing,Tightness Frequency Constant Comments Pain Comments pain is made worse if her kids jump on her or sudden movements PT-OP-J Posture/Palpation/Skin Start: 01/10/21 09:03 Freq: Status: Active Protocol: Document 01/10/21 12:00 [facility] (Rec: 01/10/21 12:06 [facility] [email or web address]) Posture Evaluation Comments Posture Comments forward head and shoulder posture, pt folds forward from her rib cage , tightness in the rib cage and decreased mobiilty of the diaphragm Palpation Assessment Location abdominal wall Palpation Details there is a great deal of swelling and scar tissue noted in the abdominal wall, pt has tenderness to even light pressure over her vertical scar, there is tightness and myofascial restrictions in the diaphragm and obliques. Abdominal hernia and 5 finger width diastasis visable and palpated. PT-OP-K Range of Motion Start: 01/10/21 12:07 Freq: Status: Active Protocol: Document 01/10/21 09:45 [facility] (Rec: 01/10/21 17:45 [facility] [email or web address]) Cervical Spine Range of Motion Cervical Spine Active Testing Position Standing Flexion 60 ROM Limitations Soft Tissue Tightness Comments pt c/o pain with neck flexion and sidebending, she is already in a forward flexed posture so trying to do more flexion is painful Lumbar Spine Range of Motion Lumbar Spine Active Testing Position Standing Flexion 40 Lateral Flexion Left 10 Lateral Flexion Right 10 ROM Limitations Soft Tissue Tightness PT-OP-M Strength Start: 01/10/21 09:03 Freq: Status: Active Protocol: Document 01/10/21 09:45 [facility] (Rec: 01/10/21 12:07 [facility] [email or web address]) Trunk Strength Trunk Manual Muscle Testing Testing Position Supine Flexion 2- Poor- Core Stabilization poor core stabilization with pain trying to initiate a abdominal contraction. Pt tends to push her abdomen out rather than being able to pull in towards her spine. She is unable to raise her head up in supine without use of her hands. PT-OP-T Assessment and Plan Start: 01/10/21 09:03 Freq: Status: Active Protocol: Document 01/26/21 13:45 [facility] (Rec: 01/26/21 13:46 [facility] [id number]) Physical Therapy Assessment Assessment Summary Assessment Per conversation with our it help desk associate Christi has decided to go ahead with surgery. She would like to hold off on PT until after her surgery to use her visits for post op strengthening of her core. We will DC PT at this time until after her surgery in May. Physical Therapy Plan Discharge Physical Therapy Discharge Reasons Patient Request Discharge Comments Pt is now scheduled for surgery in May. She requests to hold PT until after her surgery.
== END 2021-02-05 15:11 | disposition home or self-care (01) ==
LOC: PHYS 09:15
PROVIDERS: PCP Family Medicine; Referring Provider Family Medicine; Visit Provider Family Medicine
DX: N94.10 Unspecified dyspareunia (principal)
CPT/HCPCS: 97110; 97162

== ENCOUNTER → 2021-01-29 15:56 | Outpatient (CLI) | payer OTHER, MEDICAID, SELFPAY ==
[2021-01-29 17:37] LABS: Alanine Aminotransferase 56 IU/L (<35); Albumin 4.3 g/dL (3.5-5.0); Albumin Globulin Ratio 1.3 (1.0-2.8); Alkaline Phosphatase 197 U/L (38-126); Aspartate Aminotransferase 49 IU/L (14-36); BUN Creatinine Ratio 22.4 (6-22); Bilirubin Total 0.2 mg/dL (0.2-1.3); Blood Urea Nitrogen 13 mg/dL (7-17); Calcium 9.6 mg/dL (8.4-10.2); Carbon Dioxide 27 mmol/L (22-32); Chloride 101 mmol/L (98-107); Estimated Glomerular Filt Rate > 60.0 mL/min (>60); Globulin 3.4 g/dL (1.7-4.1); Glucose 101 mg/dL (70-100); HEMOLYSIS < 15 (0-50); Potassium 3.7 mmol/L (3.4-5.1); Sodium 138 mmol/L (137-145); Total Protein 7.7 g/dL (6.3-8.2)
[2021-01-29 17:39] LABS: Blood Urea Nitrogen 13 mg/dL (7-17); Calcium 9.6 mg/dL (8.4-10.2); Carbon Dioxide 28 mmol/L (22-32); Chloride 101 mmol/L (98-107); Estimated Glomerular Filt Rate > 60.0 mL/min (>60); Glucose 99 mg/dL (70-100); HEMOLYSIS < 15 (0-50); Potassium 3.6 mmol/L (3.4-5.1); Sodium 137 mmol/L (137-145)
[2021-01-29 17:50] LABS: Vitamin D 25 Hydroxy (D3) 85.4 ng/mL (30.0-100.0)
[2021-01-30 12:51] LABS: Calcium 9.1 mg/dL (8.7-10.2); Parathyroid Hormone, Intact 37 pg/mL (15-65)
== END ==
PROVIDERS: PCP Family Medicine; Referring Provider Physician Assistant Medical; Visit Provider Physician Assistant Medical
DX: I71.6 Thoracoabdominal aortic aneurysm, without rupture (principal); F41.9 Anxiety disorder, unspecified; R73.03 Prediabetes; Z85.850 Personal history of malignant neoplasm of thyroid; Z87.828 Personal history of other (healed) physical injury and trauma
CPT/HCPCS: 36415; 80048; 80053; 82306; 82310; 83970

== ENCOUNTER 2021-02-07 11:48 | Emergency (ER) | payer OTHER, MEDICAID, SELFPAY ==
[2021-02-07] VITALS (10 sets, daily range): BP systolic 132–199; BP diastolic 64–98; PULSE 67–80; RESP 16–103; O2SAT 91–100; BMI 44.3
--- NOTE | 2021-02-07 12:16 | DI.RAD.S_ITS ---
PROCEDURE: XR CHEST 1V INDICATIONS: chest pain TECHNIQUE: One view of the chest was acquired. COMPARISON: [facility], CR, XR CHEST 1V, 11/08/2020, 19:25. FINDINGS: Surgical changes and devices: None. Lungs and pleura: Submaximal inspiration resulting in vascular crowding. Cannot exclude mild interstitial pulmonary edema. No pleural effusions or pneumothorax. Mediastinum: Mediastinal contours appear normal. Unchanged cardiomegaly. Bones and chest wall: No suspicious bony lesions. Overlying soft tissues appear unremarkable. IMPRESSION: 1. Unchanged cardiomegaly. 2. Submaximal inspiration resulting in vascular crowding. Cannot exclude mild interstitial pulmonary edema. Dictated by: Baldo Pradhan M.D. on 02/07/2021 at 13:08 Approved by: Baldo Pradhan M.D. on 02/07/2021 at 13:09
[2021-02-07 12:50] LABS: Add Manual Diff / Slide Review NO; Basophils Absolute Auto 100 /uL (0-100); Basophils Percent Auto 0.8 % (0-2); Eosinophils Absolute Auto 600 /uL (0-450); Eosinophils Percent Auto 6.6 % (2-4); Hematocrit 38.6 % (36-46); Lymphocytes Absolute Auto 2600 /uL (1100-4500); Lymphocytes Percent Auto 29.5 % (25-40); Mean Corpuscular HGB Conc 33.6 % (30-36); Mean Corpuscular Hemoglobin 29.6 PG (26-34); Mean Corpuscular Volume 88.1 fL (80-100); Monocytes Absolute Auto 600 /uL (0-900); Monocytes Percent Auto 6.4 % (3-14); Neutrophils Absolute Auto 5000 /uL (1500-7000); Neutrophils Percent Auto 56.7 % (50-75); Platelet Count 276 X10^3/uL (150-400); Red Blood Cell Count 4.38 X10^6/uL (4.0-5.2); Red Cell Distribution Width 12.7 % (11.6-14.8); White Blood Cell Count 8.8 X10^3/uL (4.5-11.0)
[2021-02-07 12:57] LABS: PTT Partial Thromboplastin Tim 34 SECONDS (26.4-36.2)
[2021-02-07 13:00] LABS: Ammonia (NH3) < 9 umol/L (9-30)
[2021-02-07 13:00] LABS: Alanine Aminotransferase 68 IU/L (<35); Albumin 3.9 g/dL (3.5-5.0); Albumin Globulin Ratio 1.2 (1.0-2.8); Alkaline Phosphatase 189 U/L (38-126); Aspartate Aminotransferase 48 IU/L (14-36); BUN Creatinine Ratio 20.4 (6-22); Bilirubin Total 0.4 mg/dL (0.2-1.3); Blood Urea Nitrogen 11 mg/dL (7-17); Calcium 9.4 mg/dL (8.4-10.2); Carbon Dioxide 24 mmol/L (22-32); Chloride 105 mmol/L (98-107); Creatine Kinase 44 U/L (30-135); Estimated Glomerular Filt Rate > 60.0 mL/min (>60); Globulin 3.2 g/dL (1.7-4.1); Glucose 133 mg/dL (70-100); HEMOLYSIS < 15 (0-50); Lipase 101 U/L (23-300); Potassium 3.8 mmol/L (3.4-5.1); Sodium 136 mmol/L (137-145); Total Protein 7.1 g/dL (6.3-8.2)
[2021-02-07 13:03] LABS: COVID19 -Nasal RAPID Negative (Negative)
[2021-02-07 13:09] LABS: NT-proBNP (BNP-Adult 18+) 87 pg/mL (<125)
[2021-02-07 13:11] LABS: Troponin I < 0.012 ng/mL (0.01-0.034)
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
[2021-02-07 13:47] LABS: Pregnancy Test Serum,Qual Negative (Negative)
[2021-02-07 14:08] LABS: Free T3, Triiodothyronine Free 5.08 pg/mL (2.77-5.27); Free T4, Direct Thyroxine 0.91 ng/dL (0.78-2.19)
[2021-02-07] MEDS: diphenhydrAMINE 50 MG/ML VIAL 25 MG IV (14:08)
[2021-02-07 14:33] LABS: Bacteria Urine None Seen; RBC Urine None Seen (0-5/HPF); WBC Urine None Seen (0-5/HPF)
[2021-02-07 14:39] LABS: Appearance Urine UA CLEAR; Bilirubin Urine UA NEGATIVE (NEGATIVE); Color Urine UA YELLOW; Glucose Urine UA NEGATIVE (Negative); Ketones Urine UA NEGATIVE (NEGATIVE); Leukocyte Esterase Urine UA NEGATIVE (NEGATIVE); Nitrite Urine UA NEGATIVE (Negative); Occult Blood Urine UA NEGATIVE (Negative); Protein Urine UA NEGATIVE (Negative); Specific Gravity Urine UA 1.015 (1.000-1.035); Urobilinogen Urine UA 0.2 E.U./dL (0.2); pH Urine UA 7.5 (4.5-8.0)
[2021-02-07 14:40] LABS: Ur Creatinine Normal (Normal); Ur Specific Gravity Normal (Normal); Urine pH Normal (Normal)
[2021-02-07 14:41] LABS: Culture Indicated Urine Cult Not Indicated; UR Morphine/Opiate cutoff 300 Negative (Negative); Urine Amphetamines Negative (Negative); Urine Barbiturates Negative (Negative); Urine Benzodiazepines Negative (Negative); Urine Cocaine Negative (Negative); Urine Comments Microscopic Normal; Urine MDMA Negative (Negative); Urine Methadone Negative (Negative); Urine Methamphetamines Negative (Negative); Urine Oxycodone Negative (Negative); Urine Phencyclidine Negative (Negative); Urine Tetrahydrocannabinol Negative (Negative); Urine Tricyclic Antidepressant Negative (Negative)
--- NOTE | 2021-02-07 15:08 | DI.CT.S_ITS ---
PROCEDURE: CT HEAD/BRAIN WO CON INDICATIONS: Altered mental status TECHNIQUE: Noncontrast 4.5 mm thick angled axial sections acquired from the foramen magnum to the vertex, with coronal and sagittal reformats. For radiation dose reduction, the following was used: automated exposure control, adjustment of mA and/or kV according to patient size. COMPARISON: None. FINDINGS: Image quality: Excellent. CSF spaces: Basal cisterns are patent. No extra-axial fluid collections. Ventricles are normal in size and shape. Brain: No midline shift. No intracranial masses or hemorrhage. Thompson-white matter interface is normal. Skull and face: Hyperostosis frontalis is noted. Calvarium and visualized facial bones are intact, without suspicious lesions. Sinuses: Visualized sinuses and mastoids are clear. IMPRESSION: No acute intracranial abnormality. Dictated by: Vernon Noguera M.D. on 02/07/2021 at 15:23 Approved by: Vernon Noguera M.D. on 02/07/2021 at 15:28
--- NOTE | 2021-02-07 15:22 | PC.NURSE ---
upon discharge, pt's friend called and was requesting a ct scan, stating that her mental status is different from her baseline. pt has been AAOX4 the entire visit. pt has been intermittently moaning and failing her arms. states she is tired from the medication. ambulated to bathroom with standby assist of and me close by.
--- NOTE | 2021-02-07 16:01 | PC.NURSE ---
Addendum entered by Sharron Knowles R.N. 02/07/21 16:02: and they did not want to be admitted. Original Note: came out and told staff and Dr. Angelo that patient would like to be discharged now.
== END 2021-02-07 16:00 | disposition home or self-care (01) ==
PROVIDERS: Emergency Medicine; Emergency Provider Emergency Medicine; PCP Family Medicine
DX: R60.0 Localized edema (principal); M54.2 Cervicalgia; R53.1 Weakness; R21 Rash and other nonspecific skin eruption; Z20.822 Contact with and (suspected) exposure to COVID-19; R07.9 Chest pain, unspecified
CPT/HCPCS: 36415; 70450; 71045; 80053; 80305; 81001; 82140; 82550; 83690; 83880; 84439; 84443; 84481; 84484; 84703; 85025; 85610; 85730; 87635; 87880; 93005; 96374; 99284; C9803; J1200

== ENCOUNTER → 2021-03-16 11:30 | Outpatient (CLI) | payer OTHER, MEDICAID, SELFPAY ==
[2021-03-16 13:14] LABS: COVID19 -Nasal RAPID Negative (Negative)
== END ==
PROVIDERS: PCP Family Medicine; Visit Provider Physician Assistant
DX: J02.9 Acute pharyngitis, unspecified (principal); R05 Cough; Z20.822 Contact with and (suspected) exposure to COVID-19
CPT/HCPCS: 87635

== ENCOUNTER → 2021-04-20 10:06 | Outpatient (CLI) | payer OTHER, MEDICAID, SELFPAY ==
--- NOTE | 2021-04-20 10:07 | DI.MG.S_ITS ---
BILATERAL DIGITAL SCREENING MAMMOGRAM 3D/2D WITH CAD: 04/20/2021 CLINICAL: Routine screening. Family history of breast cancer. Comparison is made to exam dated: 09/03/2019 [facility]. There are scattered fibroglandular elements in both breasts. Current study was also evaluated with a Computer Aided Detection (CAD) system. No significant masses, calcifications, or other findings are seen in either breast. There has been no significant interval change. IMPRESSION: NEGATIVE There is no mammographic evidence of malignancy. A 1 year screening mammogram is recommended. This exam was interpreted at Station ID: [id number]. NOTE: For mammograms, a report in lay terms will be sent to the patient. Approximately 15% of breast malignancies will not be visualized mammographically. In the management of a palpable breast mass, a negative mammogram must not discourage biopsy of a clinically suspicious lesion. Electronically Signed By: Abdullahi haas/lenore:04/22/2021 09:15:10 letter sent: Normal Exam ACR BI-RADS Category 1: Negative [id number]
== END ==
PROVIDERS: PCP Family Medicine; Referring Provider Family Medicine; Visit Provider Family Medicine
DX: Z12.31 Encounter for screening mammogram for malignant neoplasm of breast (principal); Z80.3 Family history of malignant neoplasm of breast
CPT/HCPCS: 77063; 77067

== ENCOUNTER 2021-06-03 16:37 | Emergency (ER) | payer OTHER, MEDICAID, SELFPAY ==
[2021-06-03 16:47] VITALS: BP 169/102; PULSE 80; RESP 17; TEMP 36.4; O2SAT 98; BMI 45.3
--- NOTE | 2021-06-03 16:51 | DI.RAD.S_ITS ---
PROCEDURE: XR CHEST 1V INDICATIONS: chest pain TECHNIQUE: One view of the chest was acquired. COMPARISON: [facility], CR, XR CHEST 1V, 02/07/2021, 12:51. FINDINGS: Surgical changes and devices: None. Lungs and pleura: Lungs are clear. No pleural effusions or pneumothorax. Mediastinum: Mediastinal contours appear normal. Heart size is normal. Bones and chest wall: No suspicious bony lesions. Overlying soft tissues appear unremarkable. IMPRESSION: No acute cardiopulmonary abnormality Dictated by: Vernon Noguera M.D. on 06/03/2021 at 17:17 Approved by: Vernon Noguera M.D. on 06/03/2021 at 17:17
--- NOTE | 2021-06-03 17:29 | DI.CT.S_ITS ---
PROCEDURE: CT HEAD/BRAIN WO CON INDICATIONS: Headache TECHNIQUE: Noncontrast 4.5 mm thick angled axial sections acquired from the foramen magnum to the vertex, with coronal and sagittal reformats. For radiation dose reduction, the following was used: automated exposure control, adjustment of mA and/or kV according to patient size. COMPARISON: [facility], CT, CT HEAD/BRAIN WO CON, 02/07/2021, 15:16. FINDINGS: Image quality: Excellent. CSF spaces: Basal cisterns are patent. No extra-axial fluid collections. Ventricles are normal in size and shape. Brain: No midline shift. No intracranial masses or hemorrhage. Thompson-white matter interface is normal. Skull and face: Calvarium and visualized facial bones are intact, without suspicious lesions. Incidental hyperostosis frontalis interna noted. Sinuses: Visualized sinuses and mastoids are clear. IMPRESSION: Unremarkable CT brain. No intracranial hemorrhage or mass effect. Dictated by: Rhys Hough M.D. on 06/03/2021 at 16:54 Approved by: Rhys Hough M.D. on 06/03/2021 at 16:56
[2021-06-03 17:42] LABS: Add Manual Diff / Slide Review NO; Basophils Absolute Auto 100 /uL (0-100); Basophils Percent Auto 0.7 % (0-2); Eosinophils Absolute Auto 600 /uL (0-450); Hemoglobin 14.2 g/dL (12.0-16.0); Lymphocytes Absolute Auto 2500 /uL (1100-4500); Lymphocytes Percent Auto 30.3 % (25-40); Mean Corpuscular HGB Conc 34.6 % (30-36); Mean Corpuscular Hemoglobin 30.7 PG (26-34); Mean Corpuscular Volume 88.6 fL (80-100); Monocytes Absolute Auto 600 /uL (0-900); Monocytes Percent Auto 6.8 % (3-14); Neutrophils Absolute Auto 4600 /uL (1500-7000); Neutrophils Percent Auto 55.2 % (50-75); Platelet Count 289 X10^3/uL (150-400); Red Blood Cell Count 4.63 X10^6/uL (4.0-5.2); Red Cell Distribution Width 12.4 % (11.6-14.8); White Blood Cell Count 8.4 X10^3/uL (4.5-11.0)
[2021-06-03] MEDS: ACETAMINOPHEN 325 MG TABLET 975 MG PO (17:47)
[2021-06-03] MEDS: METOCLOPRAMIDE 10 MG/2 ML INJ IV (17:47)
[2021-06-03] MEDS: SODIUM CHLORIDE 0.9% 1,000 ML 1000 ML IV (17:47)
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
[2021-06-03 18:03] LABS: Alanine Aminotransferase 131 IU/L (<35); Albumin 4.8 g/dL (3.5-5.0); Albumin Globulin Ratio 1.2 (1.0-2.8); Alkaline Phosphatase 183 U/L (38-126); Aspartate Aminotransferase 162 IU/L (14-36); BUN Creatinine Ratio 20.9 (6-22); Bilirubin Total 1.3 mg/dL (0.2-1.3); Blood Urea Nitrogen 9 mg/dL (7-17); Calcium 10.6 mg/dL (8.4-10.2); Carbon Dioxide 27 mmol/L (22-32); Chloride 100 mmol/L (98-107); Creatine Kinase 62 U/L (30-135); Estimated Glomerular Filt Rate > 60.0 mL/min (>60); Globulin 3.9 g/dL (1.7-4.1); Glucose 143 mg/dL (70-100); Lipase 98 U/L (23-300); Sodium 134 mmol/L (137-145); Total Protein 8.7 g/dL (6.3-8.2)
[2021-06-03 18:04] LABS: HEMOLYSIS 257 (0-50); Potassium 5.5 mmol/L (3.4-5.1)
[2021-06-03 18:05] LABS: C-Reactive Protein Quant 2.4 mg/dL (<1.0); Erythrocyte Sedimentation Rate 42 MM/HR (0-20)
[2021-06-03 18:14] LABS: Troponin I < 0.012 ng/mL (0.01-0.034)
[2021-06-03 18:53] VITALS: BP 174/73; PULSE 66; RESP 26; O2SAT 97
[2021-06-03 19:00] VITALS: BP 138/66; PULSE 64; RESP 24; O2SAT 98
[2021-06-03] MEDS: diphenhydrAMINE 50 MG/ML VIAL IV (19:04)
[2021-06-03] MEDS: MORPHINE 4 MG/ML INJ IV (19:04)
[2021-06-03 19:30] VITALS: BP 140/77; PULSE 61; RESP 22; O2SAT 97
[2021-06-03 20:00] VITALS: BP 146/70; PULSE 63; RESP 22; O2SAT 100
== END 2021-06-03 20:12 | disposition home or self-care (01) ==
PROVIDERS: Emergency Medicine; Emergency Provider Student in an Organized Health Care Education/Training Program; PCP Family Medicine
DX: R51.9 Headache, unspecified (principal); I10 Essential (primary) hypertension
CPT/HCPCS: 36415; 70450; 71045; 80053; 82550; 83690; 84484; 85025; 85651; 86140; 93005; 93010; 96361; 96374; 96375; 99284; J1200; J2270; J2765

== ENCOUNTER → 2021-06-21 11:19 | Outpatient (CLI) | payer OTHER, MEDICAID, SELFPAY ==
[2021-06-22 08:09] LABS: SARS-CoV19- IgM Negative (Negative)
[2021-06-22 10:20] LABS: SARS CoV19 IgG Positive (Negative)
== END ==
PROVIDERS: PCP Family Medicine; Referring Provider Family Medicine; Visit Provider Family Medicine
DX: J06.9 Acute upper respiratory infection, unspecified (principal); Z11.9 Encounter for screening for infectious and parasitic diseases, unspecified
CPT/HCPCS: 36415; 86769

== ENCOUNTER 2021-07-14 19:48 | Emergency (ER) | payer OTHER, MEDICAID, SELFPAY ==
[2021-07-14 19:55] VITALS: BP 162/75; PULSE 91; RESP 22; TEMP 37.2; O2SAT 97
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
== END 2021-07-14 20:46 | disposition home or self-care (01) ==
PROVIDERS: Emergency Provider Emergency Medicine; PCP Family Medicine
DX: M22.2X1 Patellofemoral disorders, right knee (principal)
CPT/HCPCS: 99281

== ENCOUNTER → 2021-08-07 09:21 | Outpatient (CLI) | payer OTHER, MEDICAID, SELFPAY ==
[2021-08-07 10:19] LABS: Alanine Aminotransferase 150 IU/L (<35); Albumin 4.3 g/dL (3.5-5.0); Albumin Globulin Ratio 1.4 (1.0-2.8); Alkaline Phosphatase 153 U/L (38-126); Aspartate Aminotransferase 146 IU/L (14-36); BUN Creatinine Ratio 22.8 (6-22); Bilirubin Total 0.4 mg/dL (0.2-1.3); Blood Urea Nitrogen 13 mg/dL (7-17); Calcium 9.6 mg/dL (8.4-10.2); Carbon Dioxide 26 mmol/L (22-32); Chloride 101 mmol/L (98-107); Estimated Glomerular Filt Rate > 60.0 mL/min (>60); Globulin 3.1 g/dL (1.7-4.1); Glucose 158 mg/dL (70-100); HEMOLYSIS < 15 (0-50); Potassium 4.1 mmol/L (3.4-5.1); Sodium 137 mmol/L (137-145); Total Protein 7.4 g/dL (6.3-8.2)
[2021-08-07 10:29] LABS: Erythrocyte Sedimentation Rate 43 MM/HR (0-20)
[2021-08-07 10:50] LABS: Vitamin D 25 Hydroxy (D3) 112 ng/mL (30.0-100.0)
[2021-08-07 11:19] LABS: Thyroid Stimulating Hormone 27.5 uIU/mL (0.47-4.68)
[2021-08-07 14:42] LABS: Free T3, Triiodothyronine Free 4.83 pg/mL (2.77-5.27); Free T4, Direct Thyroxine 0.89 ng/dL (0.78-2.19)
[2021-08-08 09:40] LABS: Dehydroepiandrosterone Sulfate 91.3 ug/dL (57.3-279.2)
== END ==
PROVIDERS: PCP Family Medicine; Referring Provider Family Medicine; Visit Provider Family Medicine
DX: E55.9 Vitamin D deficiency, unspecified (principal); E89.0 Postprocedural hypothyroidism; E89.2 Postprocedural hypoparathyroidism; M06.00 Rheumatoid arthritis without rheumatoid factor, unspecified site; Z85.850 Personal history of malignant neoplasm of thyroid; N95.1 Menopausal and female climacteric states
CPT/HCPCS: 36415; 80053; 82306; 82627; 84439; 84443; 84481; 85651

== ENCOUNTER → 2021-10-14 14:12 | Outpatient (CLI) | payer OTHER, MEDICAID, SELFPAY ==
[2021-10-14 15:56] LABS: Erythrocyte Sedimentation Rate 29 MM/HR (0-20)
[2021-10-14 16:01] LABS: Vitamin D 25 Hydroxy (D3) 62.3 ng/mL (30.0-100.0)
[2021-10-15 07:19] LABS: HBsAg Screen Negative (Negative); Hepatitis A Antibody IgM Negative (Negative); Hepatitis B Core Antibody IgM Negative (Negative); Hepatitis C Antibody <0.1 s/co ratio (0.0-0.9)
== END ==
PROVIDERS: PCP Family Medicine; Referring Provider Family Medicine; Visit Provider Family Medicine
DX: R70.0 Elevated erythrocyte sedimentation rate (principal); R79.89 Other specified abnormal findings of blood chemistry; R74.8 Abnormal levels of other serum enzymes
CPT/HCPCS: 36415; 80074; 82306; 85651

== ENCOUNTER → 2021-12-24 07:52 | Outpatient (CLI) | payer OTHER, MEDICAID, SELFPAY ==
[2021-12-24 09:00] LABS: Erythrocyte Sedimentation Rate 37 MM/HR (0-20)
[2021-12-24 09:10] LABS: Cholesterol 227 mg/dL (140-199); HDL Cholesterol 66 mg/dL (40-60); LDL Cholesterol Calculated 135 mg/dL (<100); Triglycerides 131 mg/dL (35-150)
[2021-12-24 09:25] LABS: Vitamin D 25 Hydroxy (D3) 43.3 ng/mL (30.0-100.0)
[2021-12-24 10:01] LABS: Vitamin B12 > 1000 pg/mL (239-931)
== END ==
PROVIDERS: PCP Family Medicine; Referring Provider Family Medicine; Visit Provider Family Medicine
DX: E11.9 Type 2 diabetes mellitus without complications (principal); E89.0 Postprocedural hypothyroidism; Z13.9 Encounter for screening, unspecified
CPT/HCPCS: 36415; 80061; 82306; 82607; 85651

== ENCOUNTER → 2022-03-13 16:33 | Outpatient (CLI) | payer OTHER, MEDICAID, SELFPAY ==
--- NOTE | 2022-03-13 | DI.US.S_ITS ---
PROCEDURE: US PERIPH VENOUS LOW EXTREM LT INDICATIONS: POST OP LT FOOT /LEG SWELLING TECHNIQUE: Real-time imaging, as well as color and pulse Doppler interrogation, were performed of the lower extremity deep veins from the inguinal ligament to the popliteal fossa. COMPARISON: None. FINDINGS: The common femoral, femoral and popliteal veins are normally compressible, and free of intraluminal thrombus. Color and pulse Doppler demonstrate normal phasic intraluminal flow. There is normal augmentation response to distal compression maneuver. This study is limited by body habitus. The calf veins are not well seen. IMPRESSION: Negative for deep venous thrombosis. Dictated by: Miah Peterson M.D. on 03/13/2022 at 17:12 Approved by: Miah Peterson M.D. on 03/13/2022 at 17:12
== END ==
PROVIDERS: PCP Family Medicine; Referring Provider Family Medicine; Visit Provider Family Medicine
DX: M79.89 Other specified soft tissue disorders (principal); Z98.890 Other specified postprocedural states
CPT/HCPCS: 93971

== ENCOUNTER → 2022-06-30 10:09 | Outpatient (CLI) | payer OTHER, MEDICAID, SELFPAY ==
[2022-06-30 12:01] LABS: Alanine Aminotransferase 66 IU/L (<35); Albumin Globulin Ratio 1.1 (1.0-2.8); Alkaline Phosphatase 155 U/L (38-126); Aspartate Aminotransferase 50 IU/L (14-36); BUN Creatinine Ratio 17.2 (6-22); Bilirubin Total 0.5 mg/dL (0.2-1.3); Blood Urea Nitrogen 11 mg/dL (7-17); C-Reactive Protein Quant 1.8 mg/dL (<1.0); Calcium 8.8 mg/dL (8.4-10.2); Carbon Dioxide 25 mmol/L (22-32); Chloride 103 mmol/L (98-107); Estimated Glomerular Filt Rate > 60 mL/min (>60); Globulin 3.6 g/dL (1.7-4.1); Glucose 123 mg/dL (70-100); HEMOLYSIS < 15 (0-50); Magnesium 2.2 mg/dL (1.6-2.3); Sodium 137 mmol/L (137-145); Total Protein 7.6 g/dL (6.3-8.2)
[2022-06-30 12:08] LABS: Erythrocyte Sedimentation Rate 30 MM/HR (0-20)
[2022-06-30 12:25] LABS: Hemoglobin A1C% w Est Avg Glu 6.2 % (4.0-6.0)
[2022-06-30 12:30] LABS: TSH w/ Reflex to FT4 < 0.02 uIU/mL (0.47-4.68)
[2022-06-30 12:58] LABS: Free T4, Direct Thyroxine 1.44 ng/dL (0.78-2.19)
[2022-07-01 17:47] LABS: Free T3, Triiodothyronine Free 7.83 pg/mL (2.77-5.27); Progesterone, Total 0.26 ng/mL; Vitamin D 25 Hydroxy (D3) 36.2 ng/mL (30.0-100.0)
[2022-07-01 18:05] LABS: Ferritin 58 ng/mL (6-137)
[2022-07-01 18:20] LABS: Vitamin B12 > 1000 pg/mL (239-931)
[2022-07-02 15:21] LABS: ANA Screen, IFA Negative (.)
[2022-07-23 13:52] LABS: Estrogen 475
[2022-07-26 23:29] LABS: Testosterone, Free 2.6
== END ==
PROVIDERS: PCP Family Medicine; Referring Provider Family Medicine; Visit Provider Family Medicine
DX: R25.2 Cramp and spasm (principal); R21 Rash and other nonspecific skin eruption; E03.9 Hypothyroidism, unspecified; E11.9 Type 2 diabetes mellitus without complications; I65.21 Occlusion and stenosis of right carotid artery; M06.00 Rheumatoid arthritis without rheumatoid factor, unspecified site; N95.1 Menopausal and female climacteric states; F41.9 Anxiety disorder, unspecified; Z85.850 Personal history of malignant neoplasm of thyroid; Z13.9 Encounter for screening, unspecified; Z86.73 Personal history of transient ischemic attack (TIA), and cerebral infarction without residual deficits
CPT/HCPCS: 36415; 80053; 82306; 82607; 82672; 82728; 83036; 83735; 84144; 84402; 84439; 84443; 84481; 85651; 86038; 86140

== ENCOUNTER → 2022-12-13 11:50 | Outpatient (CLI) | payer OTHER, MEDICAID, SELFPAY ==
[2022-12-13 13:07] LABS: Alanine Aminotransferase 33 IU/L (<35); Albumin 4.3 g/dL (3.5-5.0); Albumin Globulin Ratio 1.2 (1.0-2.8); Alkaline Phosphatase 148 U/L (38-126); Aspartate Aminotransferase 33 IU/L (14-36); BUN Creatinine Ratio 16.9 (6-22); Bilirubin Total 0.5 mg/dL (0.2-1.3); Blood Urea Nitrogen 10 mg/dL (7-17); Calcium 9.4 mg/dL (8.4-10.2); Carbon Dioxide 25 mmol/L (22-32); Chloride 102 mmol/L (98-107); Cholesterol 178 mg/dL (140-199); Estimated Glomerular Filt Rate > 60 mL/min (>60); Globulin 3.5 g/dL (1.7-4.1); Glucose 103 mg/dL (70-100); HDL Cholesterol 47 mg/dL (40-60); HEMOLYSIS 17 (0-50); LDL Cholesterol Calculated 110 mg/dL (<100); Potassium 3.9 mmol/L (3.4-5.1); Sodium 137 mmol/L (137-145); Total Protein 7.8 g/dL (6.3-8.2); Triglycerides 107 mg/dL (35-150)
[2022-12-13 13:17] LABS: Erythrocyte Sedimentation Rate 37 MM/HR (0-20)
[2022-12-13 13:54] LABS: Vitamin B12 > 1000 pg/mL (239-931)
[2022-12-13 15:53] LABS: Progesterone, Total 1.07 ng/mL; Vitamin D 25 Hydroxy (D3) 51.5 ng/mL (30.0-100.0)
[2022-12-16 07:10] LABS: Dehydroepiandrosterone Sulfate 26.6 ug/dL (57.3-279.2)
[2022-12-16 16:51] LABS: QuantiFERON Mitogen Value >10.00 IU/mL (.); QuantiFERON Nil Value 0.15 IU/mL (.); QuantiFERON TB Gold Plus Negative (Negative); QuantiFERON TB1 Ag Value 0.26 IU/mL (.); QuantiFERON TB2 Ag Value 0.34 IU/mL (.)
[2022-12-17 14:20] LABS: Testosterone, Free 1.5 pg/mL (0.0-4.2)
[2022-12-18 23:25] LABS: Estrogen 388 pg/mL (.)
== END ==
PROVIDERS: PCP Family Medicine; Referring Provider Internal Medicine Rheumatology; Visit Provider Internal Medicine Rheumatology
DX: M06.00 Rheumatoid arthritis without rheumatoid factor, unspecified site (principal); R79.89 Other specified abnormal findings of blood chemistry; E53.8 Deficiency of other specified B group vitamins; E34.9 Endocrine disorder, unspecified; N95.1 Menopausal and female climacteric states; R73.03 Prediabetes; E89.0 Postprocedural hypothyroidism; I65.21 Occlusion and stenosis of right carotid artery; Z87.828 Personal history of other (healed) physical injury and trauma; E78.5 Hyperlipidemia, unspecified; F41.9 Anxiety disorder, unspecified; G43.909 Migraine, unspecified, not intractable, without status migrainosus
CPT/HCPCS: 36415; 80053; 80061; 82306; 82607; 82627; 82672; 84144; 84402; 85651; 86480

== ENCOUNTER → 2023-12-15 15:47 | Outpatient (CLI) | payer OTHER, MEDICAID, SELFPAY ==
--- NOTE | 2023-12-15 | DI.MG.S_ITS ---
BILATERAL DIGITAL SCREENING MAMMOGRAM 3D/2D WITH CAD: 12/15/2023 CLINICAL: Routine screening. Family history of breast cancer. Comparison is made to exams dated: 04/20/2021 mammogram and 09/03/2019 mammogram - [facility]. There are scattered areas of fibroglandular density in both breasts (category b / 25%-50% glandular tissue). Current study was also evaluated with a Computer Aided Detection (CAD) system. There is a focal asymmetry in the right breast at 11 o'clock middle depth. This is more prominent. There is a new focal asymmetry in the left breast at 1 o'clock middle depth. No other significant masses or calcifications are seen in either breast. IMPRESSION: INCOMPLETE: NEEDS ADDITIONAL IMAGING EVALUATION The focal asymmetry in the right breast at 11 o'clock middle depth is indeterminate. Additional views with possible ultrasound are recommended. The new focal asymmetry in the left breast at 1 o'clock middle depth is indeterminate. Additional views with possible ultrasound are recommended. Based on the Tyrer Cuzick model (a risk assessment model) the patient's lifetime risk is 12.9% and her 10 year risk is 2.4%. According to the ACR, ACS, and NCCN guidelines, an annual breast MRI exam along with mammogram is recommended if the patient's lifetime risk is 20% or greater. This exam was interpreted at Station ID: [id number]. NOTE: For mammograms, a report in lay terms will be sent to the patient. Approximately 15% of breast malignancies will not be visualized mammographically. In the management of a palpable breast mass, a negative mammogram must not discourage biopsy of a clinically suspicious lesion. Electronically Signed By: Dimas day/lenore:12/16/2023 07:50:24 letter sent: Additional Imaging Needed ACR BI-RADS Category 0: Incomplete 3340F
== END ==
PROVIDERS: PCP Family Medicine; Referring Provider Family Medicine; Visit Provider Family Medicine
DX: Z12.31 Encounter for screening mammogram for malignant neoplasm of breast (principal); Z80.3 Family history of malignant neoplasm of breast; R92.323 Mammographic fibroglandular density, bilateral breasts
CPT/HCPCS: 77063; 77067

== ENCOUNTER → 2024-04-27 14:52 | Outpatient (CLI) | payer OTHER, MEDICAID, SELFPAY ==
[2024-04-27 19:30] LABS: Follicle Stimulating Hormone 2.85 mIU/mL; Luteinizing Hormone 3.65 mIU/mL
[2024-04-27 19:46] LABS: Estradiol, Total 145.7 pg/mL
== END ==
PROVIDERS: PCP Family Medicine; Referring Provider Family Medicine; Visit Provider Family Medicine
DX: Z78.0 Asymptomatic menopausal state (principal)
CPT/HCPCS: 36415; 82670; 83001; 83002; 83498

== ENCOUNTER → 2024-05-13 16:46 | Outpatient (CLI) | payer OTHER, MEDICAID, SELFPAY ==
--- NOTE | 2024-05-13 16:47 | DI.US.S_ITS ---
PROCEDURE: US ABDOMEN LIMITED INDICATIONS: abdominal pain, poss hernia TECHNIQUE: Real-time focused scanning was performed of the abdomen, with image documentation. COMPARISON: None. FINDINGS: Targeted ultrasound of the area of pain demonstrates no sonographic abnormality. There is a mesh deep to the rectus musculature. No umbilical hernia. IMPRESSION: No sonographic abnormality. Dictated by: Alex Dale M.D. on 05/14/2024 at 6:41 Approved by: Alex Dale M.D. on 05/14/2024 at 6:41
== END ==
LOC: US 16:47
PROVIDERS: PCP Family Medicine; Referring Provider Family Medicine; Visit Provider Family Medicine
DX: K40.90 Unilateral inguinal hernia, without obstruction or gangrene, not specified as recurrent (principal); K42.9 Umbilical hernia without obstruction or gangrene
CPT/HCPCS: 76705

== ENCOUNTER → 2024-05-17 16:47 | Outpatient (CLI) | payer OTHER, MEDICAID, SELFPAY ==
--- NOTE | 2024-05-17 16:48 | DI.US.S_ITS ---
PROCEDURE: US PELVIC COMPLETE INDICATIONS: screening TECHNIQUE: Real-time scanning was performed of the pelvic organs, with image documentation. Additional endovaginal scanning was necessary due to incomplete visualization of the adnexal and endometrial structures by transabdominal scanning. COMPARISON: [facility], US, US PELVIC COMPLETE, 01/29/2021, 15:34. FINDINGS: Uterus: Uterus is absent. Ovaries: The right ovary measures 2.9 x 3.2 x 4.5 cm, with a calculated ovarian volume of 4.7 cc. The left ovary measures 2.2 x 3.1 x 4.1 cm, with a calculated ovarian volume of 4.1 cc. The ovaries have a normal sonographic appearance. Less than 12 follicles can be seen in each ovary. No adnexal masses are seen. Other: No pathologic free abdominal or pelvic fluid. IMPRESSION: Prior hysterectomy, normal appearing ovaries bilaterally. We strive to produce accurate, complete, and clear reports of imaging services. To assist us in improving patient care, this report was composed using standard report templates and voice recognition software. Therefore, it may contain abnormal punctuation, insertions and/or omissions. Occasional wrong-word or sound-alike substitutions may occur. Though we review the report and make efforts to correct it, we do recommend that the report be read carefully in proper context to recognize any text inaccuracies. Dictated by: Jeffy Acevedo M.D. on 05/18/2024 at 10:15 Approved by: Jeffy Acevedo M.D. on 05/18/2024 at 10:16
== END ==
LOC: US 16:48
PROVIDERS: PCP Family Medicine; Referring Provider Family Medicine; Visit Provider Family Medicine
DX: N70.92 Oophoritis, unspecified (principal); Z90.710 Acquired absence of both cervix and uterus
CPT/HCPCS: 76856

== ENCOUNTER → 2025-06-24 10:35 | Outpatient (CLI) | payer OTHER, MEDICARE, SELFPAY ==
[2025-06-24 11:20] LABS: Hemoglobin A1C% w Est Avg Glu 4.6 % (4.0-6.0)
[2025-06-24 11:36] LABS: Cholesterol 179 mg/dL (140-199); HDL Cholesterol 94 mg/dL (40-60); Triglycerides 88 mg/dL (35-150)
[2025-06-24 11:45] LABS: Free T3, Triiodothyronine Free 3.99 pg/mL (2.77-5.27); Free T4, Direct Thyroxine 1.03 ng/dL (0.78-2.19)
[2025-06-24 11:59] LABS: Thyroid Stimulating Hormone 1.13 uIU/mL (0.47-4.68)
[2025-06-26 17:09] LABS: Thyroglobulin Antibodies < 1.0 IU/mL (0.0-0.9)
== END ==
PROVIDERS: PCP Family Medicine; Referring Provider Student in an Organized Health Care Education/Training Program; Visit Provider Student in an Organized Health Care Education/Training Program
DX: E03.8 Other specified hypothyroidism (principal); E11.69 Type 2 diabetes mellitus with other specified complication; E78.5 Hyperlipidemia, unspecified; I10 Essential (primary) hypertension; R63.5 Abnormal weight gain; Z85.850 Personal history of malignant neoplasm of thyroid
CPT/HCPCS: 36415; 80061; 82043; 82570; 83036; 84432; 84439; 84443; 84481; 86800